=== PATIENT | male | born 1990 | race Caucasian/White ===

== ENCOUNTER 2017-06-15 11:26 | Emergency (ER) | payer BC ==
[~2017-06-15] VITALS: Ht 177.8 cm; Wt 79.0 kg
[2017-06-15 11:30] VITALS: Ht 177.8 cm; Wt 79.0 kg
[2017-06-15] MEDS ORDERED: ERYT1OIN6 BOTH EYES ×2 (15:43→15:46)
[2017-06-15 16:06] VITALS: BP 140/84; PULSE 72; RESP 16; TEMP 97.9
--- NOTE | 2017-06-15 16:54 | ERD ---
ER Documentation Chief Complaint Date/Time DATE: 06/15/17 TIME: 16:49 Chief Complaint LT EYE REDNESS AND SWELLING HPI .This is a 26-year-old male presenting to emergency department with bilateral eye redness and drainage 5 days. Patient states he has more redness to left eye than right and states both eyes have been itching. Patient has sticky discharge from bilateral eyes. No blurry vision, loss of vision or change in vision. No headache. No earache or sore throat. No cough, shortness breath or difficulty breathing. No pain with eye movement. ROS All systems reviewed and are negative except as per history of present illness. Medications Home Meds Active Scripts Erythromycin (Erythromycin Opth) 3.5 Gm Oint..gm., 1 APPLIC BOTH EYES QID, #1 Prov:DIANA VOSS NP 06/15/17 Allergies Allergies: Coded Allergies: No Known Allergy (Unverified , 06/15/17) PMhx/Soc Medical and Surgical Hx: pt denies Medical Hx, pt denies Surgical Hx Physical Exam Vitals Vital Signs Date Time Temp Pulse Resp B/P Pulse Ox O2 Delivery O2 Flow Rate FiO2 06/15/17 16:06 97.9 72 16 140/84 100 Room Air 06/15/17 11:30 97.8 71 16 142/86 99 Physical Exam Const: No acute distress, alert Head: Atraumatic Eyes: Erythematous conjunctiva bilaterally, no discharge noted. EOMs intact. PERRL ENT: Normal External Ears, Nose and Mouth. Neck: Full range of motion..~ No meningismus. Resp: Clear to auscultation bilaterally Cardio: Regular rate and rhythm, no murmurs Abd: Soft, non tender, non distended. Normal bowel sounds Skin: No petechiae or rashes Back: No midline or flank tenderness Ext: No cyanosis, or edema Neur: Awake and alert Psych: Normal Mood and Affect Procedures/MDM MDM: This is a 26-year-old male presenting to emergency department with bilateral eye redness and discharge 5 days. No fevers or chills. No eye pain. Patient states he has sticky discharge from bilateral eyes. No foreign body sensation. Vital signs are stable. Physical exam reveals erythematous conjunctiva bilaterally. No discharge noted on physical exam. No subconjunctival hemorrhage. No fevers or chills. PERRL and EOMs intact on physical exam. No limitation of EOMs on physical exam. No change in vision, loss of vision, blurry vision, floaters, halos around lights, veil or curtain coming down over eye. Denies photophobia, diplopia or headache. No foreign body sensation to eye. There is itching. No burning. No nasal congestion, sinusitis, cough, shortness breath or difficulty breathing. No facial lesions or rash.There is no pain with eye movement and no proptosis therefore I have low suspicion for orbital cellulitis or periorbital abscess. No rash, burning or lesion therefore I have low suspicion for herpes zoster or varicella. No visual changes, photophobia or loss of vision so I have low suspicion for acute angle closure glaucoma or iritis. Differential diagnosis includes but not limited to periorbital cellulitis, allergic reaction, insect bite, blepharitis, bacterial conjunctivitis, viral conjunctivitis, allergic conjunctivitis, allergic reaction, blepharitis, hordeolum or chalazion. Low suspicion for orbital cellulitis, periorbital abscess, varicella, angle closure glaucoma or iritis. Patient is appropriate for outpatient management and will be given prescription for erythromycin opth ointment. Instructed patient to return to ED in 24 hours for repeat assessment. May follow-up with [facility] and resources provided. Return to ED for any high fever, chest pain, difficulty breathing, shortness breath, wheezing, vomiting, diarrhea, abdominal pain or any new or worsening symptoms. Patient verbalizes understanding. All questions answered at discharge. Departure Diagnosis: Primary Impression: Conjunctivitis Conjunctivitis type: acute Acute conjunctivitis type: unspecified Laterality: bilateral Qualified Code: H10.33 - Acute conjunctivitis of both eyes, unspecified acute conjunctivitis type Condition: Stable Patient Instructions: Conjunctivitis, Bacterial Referrals: COMM[facility]ITY CL[facility] YOU HAVE RECEIVED A MEDICAL SCREENING EXAM AND THE RESULTS INDICATE THAT YOU DO NOT HAVE A CONDITION THAT REQUIRES URGENT TREATMENT IN THE EMERGENCY DEPARTMENT. FURTHER EVALUATION AND TREATMENT OF YOUR CONDITION CAN WAIT UNTIL YOU ARE SEEN IN YOUR DOCTORS OFFICE WITHIN THE NEXT 1-2 DAYS. IT IS YOUR RESPONSIBILITY TO MAKE AN APPOINTMENT FOR FOLOW-UP CARE. IF YOU HAVE A PRIMARY DOCTOR --you should call your primary doctor and schedule an appointment IF YOU DO NOT HAVE A PRIMARY DOCTOR YOU CAN CALL OUR PHYSICIAN REFERRAL HOTLINE AT IF YOU CAN NOT AFFORD TO SEE A PHYSICIAN YOU CAN CHOSE FROM THE FOLLOWING [facility] [address] [facility] [address] [facility] [address] [facility] [address] [facility] [address] [facility]. [address] [facility]. [facility] YOU HAVE RECEIVED A MEDICAL SCREENING EXAM AND THE RESULTS INDICATE THAT YOU DO NOT HAVE A CONDITION THAT REQUIRES URGENT TREATMENT IN THE EMERGENCY DEPARTMENT. FURTHER EVALUATION AND TREATMENT OF YOUR CONDITION CAN WAIT UNTIL YOU ARE SEEN IN YOUR DOCTORS OFFICE WITHIN THE NEXT 1-2 DAYS. IT IS YOUR RESPONSIBILITY TO MAKE AN APPOINTMENT FOR FOLOW-UP CARE. IF YOU HAVE A PRIMARY DOCTOR --you should call your primary doctor and schedule and appointment IF YOU DO NOT HAVE A PRIMARY DOCTOR YOU CAN CALL OUR PHYSICIAN REFERRAL HOTLINE AT . IF YOU CAN NOT AFFORD TO SEE A PHYSICIAN YOU CAN CHOSE FROM THE FOLLOWING [facility] INSTITUTIONS: [facility] [address] [place] [address] [facility] [address] [place], [place] [id number] [place] [address] [address] [place] [address] [facility] Hours: Mon - Fri 9:00 AM - 5:00 PM Additional Instructions: Call your primary care doctor TOMORROW for an appointment during the next 2-3 days.See the doctor sooner or return here if your condition worsens before your appointment time. Return to ED for any high fever, chest pain, difficulty breathing, shortness breath, wheezing, vomiting, diarrhea, abdominal pain or any new or worsening symptoms. DIANA VOSS NP Jun 15, 2017 16:54
== END 2017-06-15 16:07 | disposition home or self-care (01) ==
LOC: FTE 11:26
DX: H10.33 Unspecified acute conjunctivitis, bilateral (principal)
CPT/HCPCS: 99283